=== PATIENT | male | born 1975 | race Caucasian/White ===

== ENCOUNTER 2022-10-06 09:32 | Outpatient (CLI) | payer OTHER, SELFPAY ==
[2022-10-06 10:08] LABS: Hematocrit 40.9 % (42.0-52.0); Hemoglobin 14.3 g/dL (14.0-18.0); Mean Corpuscular Hemoglobin 31.2 pg (26-34); Mean Corpuscular Volume 89.1 fl (80-100); Mean Platelet Volume 9.5 fl (7.4-10.4); Platelet Count Result 280 k/mm3 (150-375); Red Blood Count 4.59 M/mm3 (4.6-6.20); White Blood Count 6.7 K/mm3 (4.5-10.0)
[2022-10-06 10:21] LABS: Iron 95 ug/dL (49-181)
[2022-10-06 10:21] LABS: INR 0.9; Prothrombin Time 12.7 Seconds (11.1-14.7)
[2022-10-06 10:22] LABS: Alanine Aminotransferase 73 U/L (6-50); Albumin Level 4.4 g/dL (3.5-5.1); Alkaline Phosphatase 64 U/L (38-126); Anion Gap 5 mmol/L (8-16); Aspartate Amino Transferase 43 U/L (17-59); Bilirubin,Total 0.5 mg/dL (0.2-1.3); Blood Urea Nitrogen 11 mg/dL (9-20); Calcium 8.9 mg/dL (8.4-10.2); Carbon Dioxide 25 mmol/L (22-30); Chloride 104 mmol/L (98-107); Estimated Glomerular Filt Rate > 60; Glucose 95 mg/dL (65-110); Potassium 4.1 mmol/L (3.4-5.0); Sodium 134 mmol/L (137-145)
[2022-10-06 10:30] LABS: Immunoglobulin G 1249 mg/dL (700-1600); Immunoglobulin M 97 mg/dL (40-230)
[2022-10-06 10:36] LABS: Percent Iron Saturation 29 % (20-50)
[2022-10-06 10:55] LABS: Hepatitis B Surface Antigen Negative (Negative)
[2022-10-06 11:01] LABS: HAV RESULT Negative (Negative); Hepatitis B Core IgM Result Negative (Negative)
[2022-10-06 11:15] LABS: Hepatitis B Surface Anti Res Positive; Hepatitis C Virus Antibody Negative (Negative)
[2022-10-08 18:36] LABS: Alpha-1-Antitrypsin, QN 135 mg/dL (83-199); Ceruloplasmin 26 mg/dL (18-36)
[2022-10-09 12:19] LABS: GGT 22 U/L (3-95)
[2022-10-09 22:27] LABS: Mitochondrial (M2) Ab (IgG) <=20.0 U (<=20.0)
[2022-10-10 22:05] LABS: Actin Antibody (IgG) <20 U (<20)
[2022-10-11 02:23] LABS: Hepatitis A Antibody Total Reactive (Nonreactive); Hepatitis B Core Ab Total Nonreactive (Nonreactive)
[2022-10-11 02:55] LABS: LKM 1 Antibody <=20.0 U (<=20.0)
[2022-10-11 14:47] LABS: Alpha Fetoprotein Tumor Marker 1.8 ng/mL (<6.1)
[2022-10-11 16:57] LABS: ALT 58 U/L (9-46); Alpha-2-Macroglobulin 186 mg/dL (106-279); Apolipoprotein A1 131 mg/dL (94-176); Fibrosis Score 0.16; Fibrosis Stage F0; GGT 22 U/L (3-95); Haptoglobin 161 mg/dL (43-212); Necroinflammat Act Grade A1; Total Bilirubin 0.4 mg/dL (0.2-1.2)
== END 2022-10-06 09:33 | disposition home or self-care (01) ==
LOC: ANHLAB 09:34
PROVIDERS: PCP Student in an Organized Health Care Education/Training Program; Visit Provider Nurse Practitioner
DX: K76.0 Fatty (change of) liver, not elsewhere classified (principal); R79.89 Other specified abnormal findings of blood chemistry; K74.60 Unspecified cirrhosis of liver
CPT/HCPCS: 36415; 80053; 80074; 81596; 82103; 82105; 82390; 82728; 82784; 82977; 83520; 83540; 83550; 85027; 85610; 86038; 86364; 86376; 86704; 86706; 86708